=== PATIENT | female | born 1945 | race Caucasian/White ===

== ENCOUNTER 2016-04-07 18:41 | Emergency (ER) | payer MEDICARE ==
[~2016-04-07 18:41] MED LIST: ADVA500A INH; ALBU8I INH; ALPR0.5T3 PO; AMBI10TA PO; ATOR20TA42 PO; BUME0.5T PO; COEN400C PO; COZA50TA PO; CYAN1000P SQ; DUONI NEB; FENO134C PO; FEXO180 PO; FLON0.053; HYDR-3535 PO; IPRA17I INH; METO10TA PO; MONT10TA2 PO; OMEG1CAP53 PO; PREM0.622 PO; PREV30CA36 PO; SPIR25TA PO; SPIRCAP INH; TAB-TAB PO; TAMS5CAP PO; [UNRECOGNIZED DRUG - CODE] PO
[2016-04-07 19:00] VITALS: BP 156/82; PULSE 97; RESP 20; TEMP 98.4; O2SAT 90
[2016-04-07] MEDS ORDERED: HYDR-3583 PO (19:33)
[2016-04-07] MEDS ORDERED: ALPR.5 PO (19:33)
[2016-04-07] MEDS ORDERED: REGL10TA5 PO (19:33)
[2016-04-07] MEDS ORDERED: FENT50DI T-DERMAL (19:33)
[2016-04-07] MEDS ORDERED: TRAD5TAB PO (19:33)
[2016-04-07] MEDS ORDERED: AMBI10TA PO (19:33)
[2016-04-07] MEDS ORDERED: VITA100064 PO (19:33)
[2016-04-07] MEDS ORDERED: MENT10SP3 (19:33)
[2016-04-07] MEDS ORDERED: FLUO0.1S2 EACH EYE (19:33)
[2016-04-07] MEDS ORDERED: MONT10TA4 PO (19:33)
[2016-04-07] MEDS ORDERED: SPIR25TA PO (19:33)
[2016-04-07] MEDS ORDERED: LOSA50TA PO (19:33)
[2016-04-07] MEDS ORDERED: VENTAER INH (19:33)
[2016-04-07] MEDS ORDERED: FENO145T2 PO (19:33)
[2016-04-07] MEDS ORDERED: FERR1TAB36 PO (19:33)
[2016-04-07] MEDS ORDERED: SPIRCAP INH (19:33)
[2016-04-07] MEDS ORDERED: LANS30CA PO (19:33)
[2016-04-07] MEDS ORDERED: ATOR20TA15 PO (19:33)
[2016-04-07] MEDS ORDERED: GLIM4TAB PO (19:33)
[2016-04-07] MEDS ORDERED: IPRA17I INH (19:33)
[2016-04-07] MEDS ORDERED: ESTR.3 PO (19:33)
[2016-04-07] MEDS ORDERED: ALBU0.63 NEB (19:33)
[2016-04-07] MEDS ORDERED: ADVA500A INH (19:33)
[2016-04-07] MEDS ORDERED: AZEL1SPR2 EACH NARE (19:33)
--- NOTE | 2016-04-07 19:55 | PD ---
HPI Chief Complaint: Laceration/Skin Injury Time Seen by Provider: 19:53 (Dede Rolle) Time Seen by Provider: 19:50 (Brandee Waldron MD) Travel History International Travel<30 days: No Contact w/Intl Traveler<30days: No Traveled to known affect area: No (Dede Rolle) History of Present Illness HPI Patient is a 71-year-old female presenting to emergency for evaluation of left forearm puncture wound. Patient was at home and fell out of a rolling chair cutting her arm. She reports her last tetanus vaccine was within the last 5 years. She denies any head injury, loss of consciousness, back pain, neck pain , abdominal pain. (Dede Rolle) PFSH Past Medical History Asthma: Yes Anxiety: Yes Cancer: Yes (SKIN) Cardiovascular Problems: No High Cholesterol: Yes COPD: Yes Coronary Artery Disease: Yes Diabetes: Yes Patient Takes Glucophage: No Diminished Hearing: No Endocrine: Yes Gastrointestinal Disorders: Yes (GERD) GERD: Yes Genitourinary: No Hepatitis: No Hiatal Hernia: No Hypertension: Yes Immune Disorder: No Musculoskeletal: Yes (ARTHRITIS, BACK PAIN) Neurologic: No Psychiatric: Yes (CLAUSTRAPHOBIA, ANXIETY) Reproductive: No Respiratory: Yes (COPD) Thyroid Disease: No Menopausal: Yes (Dede Rolle) Past Surgical History AICD: No Gynecologic Surgery: Yes (TAHBSO) Hysterectomy: Yes (1991) Joint Replacement: No Oral Surgery: Yes (TONSILLECTOMY) Pacemaker: No Tonsillectomy: Yes (1953) Other Surgery: Yes (LT HAND CARPAL TUNNEL) (Dede Rolle) Social History Alcohol Use: Yes Tobacco Use: Yes (1/2 PPD FOR 45 YEARS) Substance Use: No (Dede Rolle) Allergies-Medications (Allergen,Severity, Reaction): Coded Allergies: Sulfa (Verified Allergy, Mild, HIVES, 04/07/16) Erythromycin (Verified Adverse Reaction, Intermediate, VOMIT, 04/07/16) Epinephrine (Verified Adverse Reaction, Mild, PALPITATION, 04/07/16) Reported Meds & Prescriptions Reported Meds & Active Scripts Active Keflex (Cephalexin) 500 Mg Cap 500 Mg PO Q12H 7 Days Reported Reglan (Metoclopramide HCl) 10 Mg Tab 10 Mg PO TIDAC Fentanyl Patch 72 HR (Fentanyl) 50 Mcg/Hr Patch 50 Mcg T-DERMAL Q72H Remove old patch when new one placed. Hydrocodone-Acetaminophen 10-325 mg Tab 1 Tab PO Q4H PRN Xanax (Alprazolam) 0.5 Mg Tab 0.5 Mg PO Q4H PRN Vitamin D (Cholecalciferol) 1,000 Unit Tab 1,000 Units PO DAILY Ventolin Hfa 18 GM Inh (Albuterol Sulfate) 90 Mcg/Act Aer 1 Puff INH Q4H PRN Tradjenta (Linagliptin) 5 Mg Tab 5 Mg PO DAILY Spironolactone 25 Mg Tab 25 Mg PO DAILY Spiriva Handihaler (Tiotropium Inh) 18 Mcg Cap 18 Mcg INH DAILY 1 capsule = 18 mcg Premarin (Estrogens Conjugated) 0.3 Mg Tab 0.3 Mg PO DAILY Montelukast (Montelukast Sodium) 10 Mg Tab 10 Mg PO HS Losartan (Losartan Potassium) 50 Mg Tab 50 Mg PO BID Lansoprazole 30 Mg Capdr 30 Mg PO DAILY Iron (Ferrous Sulfate) 325 Mg Tab 325 Mg PO DAILY Take Glimepiride 4 Mg Tab 4 Mg PO DAILY Take with breakfast or first main meal Fluorometholone Opth Drops 0.1% Susp 1 Drop EACH EYE DAILY Fenofibrate 145 Mg Tab 145 Mg PO DAILY Biofreeze (Menthol (Topical Analgesic)) 10 % Spr Azelastine Nasal [place] (Azelastine HCl) 0.1% [place] 2 [place] EACH NARE BID Atrovent HFA 12.9 GM Inh (Ipratropium [place]) 17 Mcg/Act Aer 2 Puff INH Q6HR PRN Atorvastatin (Atorvastatin Calcium) 20 Mg Tab 20 Mg PO HS Ambien (Zolpidem Tartrate) 10 Mg Tab 10 Mg PO HS PRN Albuterol Neb (Albuterol Sulfate) 0.63 Mg/3 Ml Neb 0.63 Mg NEB Q4HR NEB PRN Advair Diskus Inh (Fluticasone-Salmeterol Inh) 500-50 Mcg/Blist Aer 1 Puff INH BID Rinse mouth after use. (Brandee Waldron MD) Review of Systems Except as stated in HPI: all other systems reviewed are Neg Musculoskeletal: Positive: Myalgias Skin: Positive Other (laceration, skin tear) (Dede Rolle) Physical Exam Narrative GENERAL: Well-nourished, well-developed patient. SKIN: Warm and dry. 1 cm puncture wound/laceration to the posterior left forearm with adjacent 4 cm skin avulsion approximately 2-3 mm wide. Positive radial pulse, brisk less than 3 second capillary refill HEAD: Normocephalic. EYES: No scleral icterus. No injection or drainage. NECK: Supple, trachea midline. No JVD or lymphadenopathy. CARDIOVASCULAR: Regular rate and rhythm without murmurs, gallops, or rubs. RESPIRATORY: Breath sounds equal bilaterally. No accessory muscle use. GASTROINTESTINAL: Abdomen soft, non-tender, nondistended. MUSCULOSKELETAL: No cyanosis, or edema. Full range of motion in left hand, wrist, elbow. Patient is neurovascularly intact. BACK: Nontender without obvious deformity. No CVA tenderness. (Dede Rolle) Data Data Last Documented VS Vital Signs Date Time Temp Pulse Resp B/P Pulse Ox O2 Delivery O2 Flow Rate FiO2 04/07/16 19:00 98.4 97 20 156/82 90 (Brandee Waldron MD) Orders Lidocaine 1% Inj (50 Ml) (Xylocaine 1% I (04/07/16 20:00) Forearm (2vws) (04/07/16 ) (Brandee Waldron MD) [facility] Medical Decision Making Medical Screen Exam Complete: Yes Emergency Medical Condition: Yes Interpretation(s) Vital Signs Date Time Temp Pulse Resp B/P Pulse Ox O2 Delivery O2 Flow Rate FiO2 04/07/16 19:00 98.4 97 20 156/82 90 Differential Diagnosis Puncture wound versus abrasion versus laceration versus other Narrative Course Patient is a 71-year-old female presenting to emergency for evaluation of a puncture wound to the left forearm with adjacent skin tear. She fell at home and got stuck on her rolling kitchen chair. Patient is neurovascularly intact with full range of motion in left elbow and wrist. Imaging ordered to rule out bony abnormality. Please see procedure report for laceration repair. X-ray reviewed by me appears negative for bony abnormality or foreign body. Patient was advised that sutures will need to come out in 1 week, she can follow -up with her primary doctor to have this performed. She is encouraged to return to emergency department for any new or worsening symptoms. Patient verbalized understanding instructions. Patient stable for discharge. (Dede Rolle) Procedures Procedure Narrative LACERATION LOCATION: Left forearm LENGTH: 1.5 cm NUMBER OF STITCHES/JATIN: 3 stitches REPAIR: The area of the laceration was prepped with Betadine and sterilely draped. The laceration was infiltrated with 1% lidocaine. The wound was copiously irrigated and explored without evidence of foreign body, tendon injury or neurovascular injury. The wound was closed using 4-0 Prolene. This was a 1 layer repair. A sterile dressing was applied. The patient was advised to keep the dressing clean and dry. Patient tolerated the procedure well. (Dede Rolle) Diagnosis Primary Impression: Laceration of forearm Qualified Code: S51.812A - Laceration of forearm, left, initial encounter Referrals: Primary Care Physician 1 week Patient Instructions: General Instructions, Laceration (ED), Skin Avulsion (ED) Additional Instructions: Follow-up with your primary doctor Return to emergency department for any new or worsening symptoms Take medications as directed Take [id number] acetaminophen or ibuprofen as needed and as directed for pain Med/Other Pt SpecificInfo: Prescription(s) given (Dede Rolle) Scripts Cephalexin (Keflex)500 Mg [id number] Mg PO Q12H 7 Days Ref 0 Prov:Dede Rolle 04/07/16 Disposition: 01 DISCHARGE HOME Condition: Stable Dede Rolle Apr 07, 2016 19:54 Brandee Waldron MD Apr 08, 2016 09:47
[2016-04-07] MEDS ORDERED: LIDOCAINE HCL 1% 50 ML VIAL INFIL ONE (20:00)
[2016-04-07] MEDS ORDERED: CEPH-460 PO (20:47)
--- NOTE | 2016-04-07 21:33 | RADHPO ---
EXAM DATE/TIME: 04/07/2016 20:22 [facility] COMPARISON: No previous studies available for comparison. INDICATIONS : Evaluate for foreign body. Posterior left forearm puncture wound after falling today. MEDICAL HISTORY : None. SURGICAL HISTORY : None. ENCOUNTER: Initial ACUITY: 1 day PAIN SCORE: 5/10 LOCATION: Left posterior forearm. FINDINGS: Two view examination of the left forearm demonstrates no evidence of fracture or dislocation. Bony m ineralization is normal. The soft tissue structures are intact. CONCLUSION: 1. No acute findings. No radiopaque foreign body identified. Xiang Eugene MD on April 07, 2016 at 21:31 Board Certified Radiologist. This report was verified electronically.
== END 2016-04-07 21:14 | disposition home or self-care (01) ==
LOC: PHEFT 18:41
DX: S51.812A Laceration without foreign body of left forearm, initial encounter (principal); W07.XXXA Fall from chair, initial encounter; Y92.009 Unspecified place in unspecified non-institutional (private) residence as the place of occurrence of the external cause
CPT/HCPCS: 12001; 73090

== ENCOUNTER 2016-08-21 12:18 | Emergency (ER) | payer MEDICARE ==
[~2016-08-21] VITALS: Ht 160 cm; Wt 97.0 kg
[~2016-08-21 12:18] MED LIST changes: +ALBU0.63 NEB; -ALBU8I INH; +ALPR.5 PO; -ALPR0.5T3 PO; +ATOR20TA15 PO; -ATOR20TA42 PO; +AZEL1SPR2 EACH NARE; -BUME0.5T PO; +CEPH-460 PO; -COEN400C PO; -COZA50TA PO; -CYAN1000P SQ; -DUONI NEB; +ESTR.3 PO; -FENO134C PO; +FENO145T2 PO; +FENT50DI T-DERMAL; +FERR1TAB36 PO; -FEXO180 PO; -FLON0.053; +FLUO0.1S2 EACH EYE; +GLIM4TAB PO; -HYDR-3535 PO; +HYDR-3583 PO; +LANS30CA PO; +LOSA50TA PO; +MENT10SP3; -METO10TA PO; -MONT10TA2 PO; +MONT10TA4 PO; -OMEG1CAP53 PO; -PREM0.622 PO; -PREV30CA36 PO; +REGL10TA5 PO; -TAB-TAB PO; -TAMS5CAP PO; +TRAD5TAB PO; +VENTAER INH; +VITA100064 PO; -[UNRECOGNIZED DRUG - CODE] PO
[2016-08-21 12:27] VITALS: BP 203/101; PULSE 105; RESP 22; TEMP 98.1; O2SAT 87
[2016-08-21 12:47] VITALS: BP 202/86; PULSE 101; RESP 28; TEMP 98.1; O2SAT 95
[2016-08-21] MEDS ORDERED: FURO1TAB62 PO (13:13)
[2016-08-21 13:15] LABS: AUTOMATED NEUTROPHIL # 6.8 TH/MM3 (1.8-7.7); BASOPHIL # 0.2 TH/MM3 (0-0.2); BASOPHIL % 2.1 % (0.0-2.0); EOSINOPHIL # 0.2 TH/MM3 (0-0.4); EOSINOPHIL % 2.6 % (0.0-4.0); HEMATOCRIT 37.2 % (35.0-46.0); HEMO FLAGS DIFF FINAL; LYMPH % 17.8 % (9.0-44.0); LYMPHOCYTE # 1.7 TH/MM3 (1.0-4.8); MEAN CELL VOLUME 92.6 FL (80.0-100.0); MEAN CORPUSCULAR HEMOGLOBIN 30.5 PG (27.0-34.0); MONO % 7.7 % (0.0-8.0); NEUT % 69.8 % (16.0-70.0); PLATELET COUNT 308 TH/MM3 (150-450); RED BLOOD COUNT 4.01 MIL/MM3 (4.00-5.30); WHITE BLOOD COUNT 9.6 TH/MM3 (4.0-11.0)
[2016-08-21] MEDS ORDERED: SODIUM CHLORIDE 0.9% FLUSH 10 ML FLUSH IVF PRN (13:15)
[2016-08-21] MEDS ORDERED: LORazepam 2 MG/ML VIAL IV PUSH ONE (13:15)
[2016-08-21] MEDS ORDERED: methylPREDNISolone SOD SUCC 125 MG/2 ML VIAL IVP ONE (13:15)
--- NOTE | 2016-08-21 13:17 | PD ---
HPI Chief Complaint: Respiratory Symptoms Time Seen by Provider: 12:49 Travel History International Travel<30 days: No Contact w/Intl Traveler<30days: No Traveled to known affect area: No History of Present Illness HPI This 71-year-old woman who presents to the emergency department complaining of increased shortness of breath and dyspnea on exertion times a couple days. No cough. No fevers. She has some chronic swelling in her legs but hasn't really changed much recently. No chest pain. No orthopnea. She has had a little bit of paroxysmal nocturnal dyspnea over the past couple nights. She has a history of lung disease. States she's had asthma for the past 10 years or so. She states she was tested for COPD and that was negative. She is on oxygen at night. She has a history diabetes hyperlipidemia hypertension and chronic kidney disease. She denies any history of CHF or heart disease. History Past Medical History Narrative Medical Lung disease, reports history of asthma, denies COPD, is on oxygen at night Diabetes Hyperlipidemia Hypertension Chronic back problems Chronic kidney disease Influenza Vaccination: No Menopausal: Yes Social History Alcohol Use: Yes Tobacco Use: No (1/2 PPD FOR 45 YEARS) Allergies-Medications (Allergen,Severity, Reaction): Coded Allergies: Sulfa (Verified Allergy, Mild, HIVES, 08/21/16) Erythromycin (Verified Adverse Reaction, Intermediate, VOMIT, 08/21/16) Epinephrine (Verified Adverse Reaction, Mild, PALPITATION, 08/21/16) Reported Meds & Prescriptions Reported Meds & Active Scripts Active Deltasone (Prednisone) 20 Mg Tab 40 Mg PO DAILY 10 Days Zithromax Z-Navid (Azithromycin) 250 Mg Dspk 250 Mg PO DIRECTED 500 MG (2 tabs) day 1, then 1 tab days 2-5. Reported Lasix (Furosemide) 20 Mg Tab 20 Mg PO DAILY Reglan (Metoclopramide HCl) 10 Mg Tab 10 Mg PO TIDAC Fentanyl Patch 72 HR (Fentanyl) 50 Mcg/Hr Patch 50 Mcg T-DERMAL Q72H Remove old patch when new one placed. Hydrocodone-Acetaminophen 10-325 mg Tab 1 Tab PO Q4H PRN Xanax (Alprazolam) 0.5 Mg Tab 0.5 Mg PO Q4H PRN Vitamin D (Cholecalciferol) 1,000 Unit Tab 1,000 Units PO DAILY Ventolin Hfa 18 GM Inh (Albuterol Sulfate) 90 Mcg/Act Aer 1 Puff INH Q4H PRN Tradjenta (Linagliptin) 5 Mg Tab 5 Mg PO DAILY Spironolactone 25 Mg Tab 25 Mg PO DAILY Spiriva Handihaler (Tiotropium Inh) 18 Mcg Cap 18 Mcg INH DAILY 1 capsule = 18 mcg Premarin (Estrogens Conjugated) 0.3 Mg Tab 0.3 Mg PO DAILY Montelukast (Montelukast Sodium) 10 Mg Tab 10 Mg PO HS Losartan (Losartan Potassium) 50 Mg Tab 50 Mg PO BID Lansoprazole 30 Mg Capdr 30 Mg PO DAILY Glimepiride 4 Mg Tab 4 Mg PO DAILY Take with breakfast or first main meal Fenofibrate 145 Mg Tab 145 Mg PO DAILY Azelastine Nasal [place] (Azelastine HCl) 0.1% [place] 2 [place] EACH NARE BID Atrovent HFA 12.9 GM Inh (Ipratropium [place]) 17 Mcg/Act Aer 2 Puff INH Q6HR PRN Atorvastatin (Atorvastatin Calcium) 20 Mg Tab 20 Mg PO HS Ambien (Zolpidem Tartrate) 10 Mg Tab 10 Mg PO HS PRN Albuterol Neb (Albuterol Sulfate) 0.63 Mg/3 Ml Neb 0.63 Mg NEB Q4HR NEB PRN Advair Diskus Inh (Fluticasone-Salmeterol Inh) 500-50 Mcg/Blist Aer 1 Puff INH BID Rinse mouth after use. Review of Systems Except as stated in HPI: all other systems reviewed are Neg Physical Exam Narrative GENERAL: Generally well-appearing 71 year-old woman, obese, tremulous and anxious appearing. SKIN: Focused skin assessment warm/dry. HEAD: Atraumatic. Normocephalic. EYES: Pupils equal and round. No scleral icterus. No injection or drainage. ENT: No nasal bleeding or discharge. Mucous membranes pink and moist. NECK: Trachea midline. No JVD. CARDIOVASCULAR: Regular rate and rhythm. No murmur appreciated. RESPIRATORY: Patient with some heavy breathing, able to speak in full sentences. Lungs with some faint expiratory wheezing. Good air movement. GASTROINTESTINAL: Abdomen soft, non-tender, nondistended. Hepatic and splenic margins not palpable. MUSCULOSKELETAL: No obvious deformities. Some chronic appearing bilateral lower extremity edema. Minimal pitting. NEUROLOGICAL: Awake and alert. No obvious cranial nerve deficits. Motor grossly within normal limits. Normal speech. PSYCHIATRIC: Anxious. Data Data Last Documented VS Vital Signs Date Time Temp Pulse Resp B/P Pulse Ox O2 Delivery O2 Flow Rate FiO2 08/21/16 13:32 95 Nasal Cannula 2.00 08/21/16 12:47 98.1 101 28 202/86 Orders Complete Blood Count With Diff (08/21/16 13:04) Comprehensive Metabolic Panel (08/21/16 13:04) B-Type Natriuretic Peptide (08/21/16 13:04) Troponin I (08/21/16 13:04) Iv Access Insert/Monitor (08/21/16 13:04) Ecg Monitoring (08/21/16 13:04) Oximetry (08/21/16 13:04) Oxygen Administration (08/21/16 13:04) Chest, Pa & Lat (08/21/16 13:04) Sodium Chloride 0.9% Flush (Ns Flush) (08/21/16 13:15) Methylprednisolone So Succ Inj (Solumedr (08/21/16 13:15) Albuterol-Ipratropium Neb (Duoneb Neb) (08/21/16 13:15) Lorazepam Inj (Ativan Inj) (08/21/16 13:15) D-Dimer (08/21/16 14:23) Electrocardiogram (08/21/16 12:29) Labs Laboratory Tests Test 08/21/16 08/21/16 13:10 13:31 White Blood Count 9.6 TH/MM3 Red Blood Count 4.01 MIL/MM3 Hemoglobin 12.3 GM/DL Hematocrit 37.2 % Mean Corpuscular Volume 92.6 FL Mean Corpuscular Hemoglobin 30.5 PG Mean Corpuscular Hemoglobin 33.0 % Concent Red Cell Distribution Width 14.0 % Platelet Count 308 TH/MM3 Mean Platelet Volume 6.1 FL Neutrophils (%) (Auto) 69.8 % Lymphocytes (%) (Auto) 17.8 % Monocytes (%) (Auto) 7.7 % Eosinophils (%) (Auto) 2.6 % Basophils (%) (Auto) 2.1 % Neutrophils # (Auto) 6.8 TH/MM3 Lymphocytes # (Auto) 1.7 TH/MM3 Monocytes # (Auto) 0.7 TH/MM3 Eosinophils # (Auto) 0.2 TH/MM3 Basophils # (Auto) 0.2 TH/MM3 CBC Comment DIFF FINAL Differential Comment D-Dimer Quantitative (PE/DVT) 0.20 MG/L FEU B-Type Natriuretic Peptide 36 PG/ML Sodium Level 140 MEQ/L Potassium Level 4.4 MEQ/L Chloride Level 102 MEQ/L Carbon Dioxide Level 27.6 MEQ/L Anion Gap 10 MEQ/L Blood Urea Nitrogen 27 MG/DL Creatinine 1.20 MG/DL Estimat Glomerular Filtration 45 ML/MIN Rate Random Glucose 145 MG/DL Calcium Level 9.6 MG/DL Total Bilirubin 0.5 MG/DL Aspartate Amino Transf 31 U/L (AST/SGOT) Alanine Aminotransferase 26 U/L (ALT/SGPT) Alkaline Phosphatase 59 U/L Troponin I LESS THAN 0.02 NG/ML Total Protein 7.6 GM/DL Albumin 3.9 GM/DL [facility] Medical Decision Making Medical Screen Exam Complete: Yes Emergency Medical Condition: Yes Interpretation(s) My review of EKG: Sinus tachycardia rate 100, slightly leftward axis, normal intervals, no definite evidence of acute ischemia. LABS: CBC is unremarkable. CMP shows mildly elevated BUN/creatinine. Troponin is negative. BNP is normal D-dimer 0.2 Cardiomegaly. No overt congestive failure. Differential Diagnosis Anxiety, COPD, URI, pneumonia, CHF, PE, other Narrative Course Medical decision making INITIAL: This 71-year-old woman presents emergent [place] shortness of breath and dyspnea on exertion. She looks overall well. She appears to be anxious. States this is common for her. She took a Xanax before she came in. She is tremulous. She has been doing some bronchodilators. Heart rate a little bit up , don't see any other real evidence of PE. I don't think she needs further evaluation for PE. This is likely a flare of her asthma. CHF seems less likely. We'll check x-ray, labs, EKG, reassess. Diagnosis Primary Impression: Asthma exacerbation Additional Instructions: Continue reading treatments every 4-6 hours until symptoms resolve. Take steroids as prescribed. Take azithromycin as prescribed. Return to the emergency department for any new or worsening symptoms. Med/Other Pt SpecificInfo: Prescription(s) given Scripts Prednisone (Deltasone)20 Mg Tab40 Mg PO DAILY 10 Days Prov:Delmar Shi MD 08/21/16 Azithromycin (Zithromax Z-Navid)250 Mg [id number] Mg PO DIRECTED #1 DSPK 500 MG (2 tabs) day 1, then 1 tab days 2-5. Prov:Delmar Shi MD 08/21/16 Disposition: 01 DISCHARGE HOME Condition: Stable Delmar Shi MD Aug 21, 2016 13:17
[2016-08-21] MEDS: RESP: ALBUTEROL 2.5 MG/IPRATROPIUM 0.5 MG NEB (SCH) INH ×2 (13:28→13:29)
[2016-08-21 13:32] VITALS: O2SAT 95
[2016-08-21 13:53] LABS: CHLORIDE 102 MEQ/L (98-107); POTASSIUM 4.4 MEQ/L (3.5-5.1); SODIUM (NA) 140 MEQ/L (136-145)
--- NOTE | 2016-08-21 13:56 | RADRPT ---
EXAM DATE/TIME: 08/21/2016 13:20 [facility] COMPARISON: FOREARM LEFT (2VWS), April 07, 2016, 20:22. INDICATIONS : Short of breath MEDICAL HISTORY : Hypertension. Hypercholesterolemia. Chronic obstructive pulmonary disease. Asthma, Smoker SURGICAL HISTORY : None. ENCOUNTER: Initial ACUITY: 1 day PAIN SCORE: 0/10 LOCATION: Bilateral chest FINDINGS: The heart is mildly enlarged. The mediastinal contours are prominent. There is soft tissue in the rig ht peritracheal region. CT imaging through the thorax to exclude adenopathy is warranted. The lungs a re otherwise clear. The bony structures are intact. CONCLUSION: 1. Prominence of the mediastinum particularly the right paratracheal stripe suggesting possible adeno osiel. 2. Cardiomegaly. No overt congestive failure. Garfield Ty MD on August 21, 2016 at 13:51 Board Certified Radiologist. This report was verified electronically.
[2016-08-21 13:57] LABS: ANION GAP 10 MEQ/L (5-15); BICARBONATE 27.6 MEQ/L (21.0-32.0); BLOOD UREA NITROGEN 27 MG/DL (7-18)
[2016-08-21 14:00] LABS: ALT (GPT) 26 U/L (10-53); AST (GOT) 31 U/L (15-37); GLOMERULAR FILTRATION RATE 45 ML/MIN (>89)
[2016-08-21 14:01] LABS: TOTAL BILIRUBIN ADULT 0.5 MG/DL (0.2-1.0)
[2016-08-21 14:03] LABS: ALKALINE PHOSPHATASE 59 U/L (45-117)
[2016-08-21] MEDS ORDERED: ZITHTAB PO (14:14)
[2016-08-21] MEDS ORDERED: PRED-503 PO (14:14)
[2016-08-21 15:19] VITALS: BP 180/70
--- NOTE | 2016-08-22 11:45 | EKG ---
Date Performed: 08/21/2016 Time Performed: 12:29:06 PTAGE: 71 years EKG: SINUS TACHYCARDIA Since previous tracing, no significant change noted ABNORMAL RHYTHM ECG PREVIOUS TRACING : 10/27/1999 16.33 DOCTOR: Phill Wade Interpretating Date/Time 08/22/2016 12:06:20
== END 2016-08-21 15:40 | disposition home or self-care (01) ==
LOC: PHED 12:18
DX: J45.901 Unspecified asthma with (acute) exacerbation (principal); R00.0 Tachycardia, unspecified; E11.9 Type 2 diabetes mellitus without complications; I12.9 Hypertensive chronic kidney disease with stage 1 through stage 4 chronic kidney disease, or unspecified chronic kidney disease; N18.9 Chronic kidney disease, unspecified; E78.5 Hyperlipidemia, unspecified; Z79.84 Long term (current) use of oral hypoglycemic drugs; Z87.09 Personal history of other diseases of the respiratory system; Z87.39 Personal history of other diseases of the musculoskeletal system and connective tissue
CPT/HCPCS: 71020; 80053; 83880; 84484; 85025; 85379; 93005; 94640; 94664; 96374; 96375; 99285; J2060; J2930